=== PATIENT | female | born 1995 | race Hispanic/Latino ===

== ENCOUNTER 2017-09-11 09:00 | Emergency (ER) | payer OTHER ==
[~2017-09-11] VITALS: Ht 152.4 cm; Wt 63.6 kg
[2017-09-11 10:14] LABS: BASO % 0.3 % (0.0-1.0); EOS % 0.2 % (0.0-3.0); IMMATURE GRANULOCYTE % 0.4 % (0-0); LYMPH # 1.5 10^3/uL (1.5-6.5); LYMPH % 15.1 % (24.0-44.0); MEAN CORPUSCULAR HEMOGLOBIN 31.4 pg (27.0-33.0); MEAN CORPUSCULAR HGB CONC 35.7 g/dl (32.0-36.5); MEAN CORPUSCULAR VOLUME 87.9 fl (80.0-96.0); MONO # 0.5 10^3/uL (0.0-0.8); MONO % 4.8 % (0.0-5.0); NEUTROPHILS # 7.9 10^3/uL (1.8-7.7); NEUTROPHILS % 79.2 % (36.0-66.0); PLATELET COUNT, AUTOMATED 265 10^3/uL (150-450); RED CELL DISTRIBUTION WIDTH 11.5 % (11.5-14.5); WHITE BLOOD COUNT 9.9 10^3/uL (4.0-10.0)
[2017-09-11 10:55] LABS: ANION GAP 7 MEQ/L (8-16); BLOOD UREA NITROGEN 6 MG/DL (7-18); CALCIUM LEVEL 9.1 MG/DL (8.5-10.1); CARBON DIOXIDE LEVEL 26 MEQ/L (21-32); CHLORIDE LEVEL 104 MEQ/L (98-107); CREATININE FOR GFR 0.54 MG/DL (0.55-1.02); GLOMERULAR FILTRATION RATE > 60.0 (>60); GLUCOSE, FASTING 82 MG/DL (70-105); HCG, SERUM QUANTITATIVE 107245 MIU/ML; POTASSIUM SERUM 3.5 MEQ/L (3.5-5.1); SODIUM LEVEL 137 MEQ/L (136-145)
--- NOTE | 2017-09-11 11:25 | REP ---
Emergency first trimester OB sonography: History: Vaginal spotting. Findings: Transabdominal and transvaginal scanning demonstrate retroverted retroflexed uterus with an intrauterine gestation. A viable single intrauterine gestation is seen. The crown-rump length of the embryonic pole measures 9 mm. This corresponds with a gestational age estimate of 7 weeks 0 days. heart rate is recorded at 157 beats per minute. A 1.6 x 0.9 x 2.2 cm subchorionic hemorrhage is seen inferior to the gestational sac. No extrauterine abnormalities observed. No free fluid is seen. Impression: Viable single intrauterine gestation at 7 weeks 0 days by crown-rump length. ARMOND by sonography April 30, 2018. A 2.2 cm subchorionic hemorrhage seen inferiorly adjacent to the gestational sac. Signed by Jya Sosa MD 09/11/2017 02:13 P
[2017-09-11 11:31] VITALS: BP 118/72
== END 2017-09-11 11:36 | disposition home or self-care (01) ==
LOC: M ED 09:00
DX: O20.8 Other hemorrhage in early pregnancy (principal); Z3A.01 Less than 8 weeks gestation of pregnancy

== ENCOUNTER 2017-11-02 08:54 | Emergency (ER) | payer OTHER ==
[~2017-11-02] VITALS: Ht 165.1 cm; Wt 61.3 kg
[2017-11-02 08:54] VITALS: BP 118/71
[2017-11-02] MEDS ORDERED: SUDA1TAB3 PO (09:05)
[2017-11-02] MEDS ORDERED: PRENTAB55 PO (09:05)
[2017-11-02] MEDS ORDERED: TYLE325T5 PO (09:05)
[2017-11-02 09:51] LABS: BASO % 0.2 % (0.0-1.0); EOS # 0.1 10^3/uL (0.0-0.50); EOS % 0.5 % (0.0-3.0); IMMATURE GRANULOCYTE % 0.3 % (0-0); LYMPH # 1.4 10^3/uL (1.5-6.5); LYMPH % 13.5 % (24.0-44.0); MEAN CORPUSCULAR HEMOGLOBIN 31.4 pg (27.0-33.0); MEAN CORPUSCULAR HGB CONC 35.5 g/dl (32.0-36.5); MEAN CORPUSCULAR VOLUME 88.5 fl (80.0-96.0); MONO # 0.4 10^3/uL (0.0-0.8); MONO % 3.8 % (0.0-5.0); NEUTROPHILS # 8.5 10^3/uL (1.8-7.7); NEUTROPHILS % 81.7 % (36.0-66.0); PLATELET COUNT, AUTOMATED 265 10^3/uL (150-450); RED CELL DISTRIBUTION WIDTH 11.9 % (11.5-14.5); WHITE BLOOD COUNT 10.5 10^3/uL (4.0-10.0)
[2017-11-02] MEDS ORDERED: AUGM875T28 PO (10:03)
[2017-11-02] MEDS ORDERED: ZOFR4TAB3 PO (10:04)
[2017-11-02] MEDS ORDERED: SALI0.6523 (10:04)
== END 2017-11-02 10:19 | disposition home or self-care (01) ==
LOC: M ED 08:54
DX: O99.89 Other specified diseases and conditions complicating pregnancy, childbirth and the puerperium (principal); J01.90 Acute sinusitis, unspecified; Z3A.14 14 weeks gestation of pregnancy; O99.52 Diseases of the respiratory system complicating childbirth; Z79.899 Other long term (current) drug therapy

== ENCOUNTER 2018-01-04 09:53 | Outpatient (CLI) | payer OTHER | END 2018-01-04 11:10 | disposition home or self-care (01) | LOC: M LDO 09:53 | DX: O26.852 Spotting complicating pregnancy, second trimester (principal); Z3A.23 23 weeks gestation of pregnancy; Z87.59 Personal history of other complications of pregnancy, childbirth and the puerperium ==

== ENCOUNTER 2018-01-23 18:19 | Outpatient (CLI) | payer OTHER ==
[2018-01-23] MEDS: BETAMETHASONE SOLUSPAN 6MG/ML INJ 5ML (J0702) IM ×2 (20:14)
[2018-01-23] MEDS: raNITIdine SYRUP 150 MG/10 ML UDC PO ×2 (21:58)
[2018-01-24] MEDS: BETAMETHASONE SOLUSPAN 6MG/ML INJ 5ML (J0702) IM ×2 (08:19)
[2018-01-24] MEDS: raNITIdine SYRUP 150 MG/10 ML UDC PO ×2 (09:28)
== END 2018-01-24 10:17 | disposition home or self-care (01) ==
LOC: M LDO 18:19
DX: O26.852 Spotting complicating pregnancy, second trimester (principal); Z3A.26 26 weeks gestation of pregnancy; O99.512 Diseases of the respiratory system complicating pregnancy, second trimester; J45.909 Unspecified asthma, uncomplicated; O99.342 Other mental disorders complicating pregnancy, second trimester; F41.9 Anxiety disorder, unspecified; Z87.59 Personal history of other complications of pregnancy, childbirth and the puerperium
CPT/HCPCS: J0702

== ENCOUNTER 2018-04-09 01:31 | Outpatient (CLI) | payer OTHER | END 2018-04-09 02:33 | disposition home or self-care (01) | LOC: M LDO 01:31 | DX: O47.03 False labor before 37 completed weeks of gestation, third trimester (principal); Z3A.36 36 weeks gestation of pregnancy | CPT/HCPCS: 59025 ==

== ENCOUNTER 2018-04-21 12:16 | Outpatient (CLI) | payer OTHER | END 2018-04-21 14:36 | disposition home or self-care (01) | LOC: M LDO 12:16 | DX: O47.9 False labor, unspecified (principal); O26.899 Other specified pregnancy related conditions, unspecified trimester; Z3A.00 Weeks of gestation of pregnancy not specified | CPT/HCPCS: 59025 ==

== ENCOUNTER 2018-04-29 00:41 | Inpatient (IN) | payer OTHER ==
[2018-04-29] MEDS: LACTATED RINGER'S 1000 ML IV (05:54)
[2018-04-29 06:45] LABS: HEMATOCRIT 32.1 % (36.0-47.0); HEMOGLOBIN 10.1 g/dl (12.0-15.5); MEAN CORPUSCULAR HEMOGLOBIN 26.2 pg (27.0-33.0); MEAN CORPUSCULAR HGB CONC 31.5 g/dl (32.0-36.5); MEAN CORPUSCULAR VOLUME 83.4 fl (80.0-96.0); PLATELET COUNT, AUTOMATED 185 10^3/uL (150-450); RED BLOOD COUNT 3.85 10^6/uL (4.00-5.40); RED CELL DISTRIBUTION WIDTH 15.8 % (11.5-14.5); WHITE BLOOD COUNT 10.9 10^3/uL (4.0-10.0)
[2018-04-29] MEDS ORDERED: FENTANYL 2MCG/ML ROPIVACAINE 0.2% IN 0.9% NACL 200ML IVBAG As Ordered (06:45)
[2018-04-29 06:55] LABS: AMPHETAMINES URINE REFLEX NEGATIVE (NEGATIVE); BARBITURATES URINE REFLEX NEGATIVE (NEGATIVE); BENZODIAZEPINES URINE REFLEX NEGATIVE (NEGATIVE); CANNABINOIDS URINE REFLEX NEGATIVE (NEGATIVE); COCAINE METABOLITE URINE REFLE NEGATIVE (NEGATIVE); METHADONE URINE REFLEX NEGATIVE (NEGATIVE); OPIATES URINE REFLEX NEGATIVE (NEGATIVE); PHENCYCLIDINE URINE REFLEX NEGATIVE (NEGATIVE)
[2018-04-29] MEDS ORDERED: OXYTOCIN 30 UNITS IN 0.9% NaCl 500ML IV BAG (J2590) As Ordered (06:57)
[2018-04-29] MEDS: LR 1,000 ML IV (07:35)
[2018-04-29] MEDS ORDERED: ePHEDrine SULFATE 25 MG/5 ML(5MG/ML) SYRINGE IV (07:41)
[2018-04-29] MEDS ORDERED: diphenhydrAMINE INJ 50MG/ML VIAL (J1200) IV (07:41)
[2018-04-29] MEDS: FENTANYL/ROPIVACAINE/NACL BAG 200 ML EPIDURAL (07:41)
[2018-04-29] MEDS ORDERED: EPIDURAL COMMENT XX (07:41)
[2018-04-29] MEDS ORDERED: REFRIGERATOR IV KEYS XX (07:41)
[2018-04-29] MEDS ORDERED: EPIDURAL/PCA KEYS XX (07:41)
[2018-04-29] MEDS ORDERED: ONDANSETRON 4MG/2ML VIAL (J2405) IV (07:41)
[2018-04-29] MEDS ORDERED: LACTATED RINGER'S 1000 ML IV (07:41)
[2018-04-29] MEDS ORDERED: NALOXONE INJ 0.4 MG/1 ML VIAL (J2310) IV (07:41)
[2018-04-29] MEDS ORDERED: MEPERIDINE INJ 25 MG/ML VIAL (J2175) As Ordered (08:20)
[2018-04-29] MEDS ORDERED: METHYLERGONOVINE MALEATE 0.2 MG/ML VIAL (J2210) As Ordered (08:20)
[2018-04-29] MEDS: DOCUSATE SODIUM 100 MG CAP PO ×2 (09:00→20:50)
[2018-04-29] MEDS ORDERED: METOCLOPRAMIDE INJ 10MG/2ML VIAL (J2765) IV (09:00)
[2018-04-29] MEDS ORDERED: DIBUCAINE 1% OINTMENT 30GM TOP (09:00)
[2018-04-29] MEDS ORDERED: RHOGAM 300 MCG (1500 IU) INJ (J2790) IM (09:00)
[2018-04-29] MEDS ORDERED: MEASLES,MUMPS,RUBELLA VACCINE INJ (MMR-II) (90707) SC (09:00)
[2018-04-29] MEDS: miSOPROStol 200 MCG TAB (S0191) PR (09:00)
[2018-04-29] MEDS: PRENATAL VITAMINS CHEWABLE TABLET PO (09:00)
[2018-04-29] MEDS: METHYLERGONOVINE MALEATE 0.2 MG/ML VIAL (J2210) IM (09:00)
[2018-04-29] MEDS ORDERED: UNASYN 3 GM VIAL As Ordered (09:13)
[2018-04-29] MEDS: OXYTOCIN DRIP 30 UNITS in APPROPRIATE DILUENT 1 EA IV ×2 (09:27→10:00)
[2018-04-29] MEDS: AMPICILLIN SOD/SULBACTAM SOD 3 GM in D5W MINI-BAG PLUS 100 ML IV ×3 (09:31→22:18)
[2018-04-29] MEDS: IBUPROFEN 800 MG TAB PO ×2 (12:46→22:17)
[2018-04-29] MEDS ORDERED: METHYLERGONOVINE MALEATE 0.2 MG TAB PO (13:00)
[2018-04-29] MEDS: ACETAMINOPHEN TAB 650MG DOSE (2X325MG) PO ×2 (16:16→20:50)
[2018-04-30] MEDS: AMPICILLIN SOD/SULBACTAM SOD 3 GM in D5W MINI-BAG PLUS 100 ML IV (03:53)
[2018-04-30] MEDS: ACETAMINOPHEN TAB 650MG DOSE (2X325MG) PO (03:53)
[2018-04-30 05:37] LABS: HEMATOCRIT 25.7 % (36.0-47.0); MEAN CORPUSCULAR HEMOGLOBIN 26.6 pg (27.0-33.0); MEAN CORPUSCULAR HGB CONC 31.5 g/dl (32.0-36.5); MEAN CORPUSCULAR VOLUME 84.5 fl (80.0-96.0); PLATELET COUNT, AUTOMATED 156 10^3/uL (150-450); RED BLOOD COUNT 3.04 10^6/uL (4.00-5.40); RED CELL DISTRIBUTION WIDTH 15.9 % (11.5-14.5); WHITE BLOOD COUNT 11.7 10^3/uL (4.0-10.0)
[2018-04-30 05:44] LABS: HEMOGLOBIN 8.1 g/dl (12.0-15.5)
[2018-04-30] MEDS ORDERED: OXYTOCIN INJ 10 UNITS/ML VIAL (J2590) As Ordered (08:05)
[2018-04-30] MEDS: DOCUSATE SODIUM 100 MG CAP PO ×2 (08:14→21:10)
[2018-04-30] MEDS: PRENATAL VITAMINS CHEWABLE TABLET PO (08:14)
[2018-04-30] MEDS: IBUPROFEN 800 MG TAB PO (08:15)
[2018-05-01] MEDS: IBUPROFEN 800 MG TAB PO (05:17)
[2018-05-01] MEDS: PRENATAL VITAMINS CHEWABLE TABLET PO (09:32)
[2018-05-01] MEDS: DOCUSATE SODIUM 100 MG CAP PO (09:32)
[2018-05-01] MEDS: ACETAMINOPHEN TAB 650MG DOSE (2X325MG) PO (09:33)
== END 2018-05-01 13:25 | disposition home or self-care (01) | DRG 767 ==
LOC: M LDO 00:41 → M LDI 05:55 → M OBS 10:23
PROC: 10D17Z9 Manual Extraction of Products of Conception, Retained, Via Natural or Artificial Opening (ICD-10-PCS; principal; 2018-04-29)
PROC: 10E0XZZ Delivery of Products of Conception, External Approach (ICD-10-PCS; 2018-04-29)
DX: O69.89X0 Labor and delivery complicated by other cord complications, not applicable or unspecified (principal); Z37.0 Single live birth; O73.0 Retained placenta without hemorrhage; Z3A.39 39 weeks gestation of pregnancy

== ENCOUNTER 2019-01-30 16:53 | Emergency (ER) | payer OTHER ==
[~2019-01-30] VITALS: Ht 149.9 cm; Wt 52.3 kg
[2019-01-30 16:53] VITALS: BP 124/75
[~2019-01-30 16:53] MED LIST: AUGM875T28 PO; COLA100C5 PO; DIBU1OIN TOP; IBUP-1114 PO; MAPA500T2 PO; PRENTAB55 PO; PRENTAB9 PO; RANI1SYP PO; SALI0.6528; SUDA1TAB3 PO; TYLE325T5 PO; ZOFR4TAB14 PO
== END 2019-01-30 17:33 | disposition home or self-care (01) ==
LOC: M ED 16:53
DX: S06.0X0A Concussion without loss of consciousness, initial encounter (principal); V49.49XA Driver injured in collision with other motor vehicles in traffic accident, initial encounter; Y92.481 Parking lot as the place of occurrence of the external cause